=== PATIENT | male | born 1950 | race Caucasian/White ===

== ENCOUNTER 2016-04-03 10:53 | Outpatient (CLI) | payer MEDICARE, BC ==
[~2016-04-03] VITALS: Ht 195.6 cm; Wt 104.5 kg
--- NOTE | ~2016-04-03 | HEMODYNAMI ---
PATIENT:BRANDON JAMESON MEDICAL RECORD: [id number] : 46 LOCATION:[facility] ADMISSION DATE: 04/03/16 Generatedon:04/03/201613:27 Patient name: BRANDON JAMESON Patient #: [id number] SSN: : 1950 Date of study: 04/03/2016 Page: Of Hemodynamic Procedure Report Patient Data Patient Demographics Procedure consent was obtained First Name: BRANDON Gender: Male Last Name: GISELL : 1950 Middle Initial: A Age: 65 year(s) Patient #: [id number] Race: Additional ID: [id number] Contact details Address: [address] [place] [address] State: [place] City: [place] Zip code: [address] Past Medical History Performed procedures and imaging results Date Procedure Procedure Results Comments 03/23/2016 Stress testing Positive->Intermediate anterior with SPECT MPI risk Allergies: No known allergies Admission Admission Data Admission Date: 04/03/2016 Admission Time: 10:53 Insurance Payor: Private health insurance, Medicare Height (in.): 77 BSA: 2.39 (m2) Height (cm.): 195.58 BMI: 27.63 (kg/m2) Weight (lbs.): 233 Weight (kg.): 105.69 Lab Results Lab Result Date: 04/03/2016 Lab Result Time: 11:15 Biochemistry Name Units Result Min Max BUN mg/dl 18 --(---*)-- 7 18 Creatinine mg/dl 1.4 --(----)*- 0.6 1.3 CBC Name Units Result Min Max Hemoglobin g/dl 16 --(--*-)-- 13.5 17.5 Procedure Procedure Types Cath Procedure Diagnostic Procedure C [facility] w/Coronaries Miscellaneous Procedures Moderate Sedation up to 15 minutes Procedure Description Procedure Date Procedure Date: 04/03/2016 Procedure Start Time: 13:14 Procedure End Time: 13:24 Procedure Staff Name Function Gentry Blanca MD Performing Physician Leah Carrion RT Scrub Renaldo Becerril RN Nurse Michael Arechiga RT Monitor Procedure Data Cath Procedure Fluoroscopy Diagnostic fluoroscopy Total fluoroscopy Time: 1.3 time: 1.3 min min Diagnostic fluoroscopy Total fluoroscopy dose: 331 dose: 331 mGy mGy Contrast Material Contrast Material Type Amount (ml) Isovue 300 59 Entry Location Entry Primary Successful Side Size Upsize Upsize Entry Closure Succes sful Closure Location (Fr) 1 (Fr) 2 (Fr) Remarks Device Remarks Femoral Right 5 Fr Exoseal artery Estimated blood loss: 5 ml Diagnostic catheters Device Type Used For End Catheter Placement Cordis 5Fr JL 4.0 Procedure Catheter (MP) Cordis 5Fr 3DRC Catheter Procedure (MP) Cordis 5Fr Pigtail Procedure Catheter (MP) Procedure Complications No complications Procedure Medications Medication Administration Route Dosage Oxygen NC 2 l/min Lidocaine 2% added to field 20 Heparin Flush Bag added to field 2 bags (1000units/500ml NS) 0.9% NaCl I.V. 100 ml/hr Versed I.V. 2 mg Fentanyl I.V. 100 mcg Versed I.V. 2 mg Fentanyl I.V. 100 mcg Versed I.V. 0.5 mg Fentanyl I.V. 25 mcg Hemodynamics Rest BSA: 2.39 (m2) HGB: 16 (g/dl) O2 Consumption: Estimated: 288.77 (ml/min) O2 Cons umption indexed: Estimated:120.82 (ml/min/m) Heart Rate: 82 (bpm) Pressure Samples Time Site Value (mmHg) Purpose Heart Use Rate(bpm) 13:19 LV 132/9,16 Snapshot 76 Gradients Valve Time Site Site Mean SEP/DFP Peak To Heart Use 1 2 (mmHg) (sec/min) Peak Rate (mmHg) (bpm) Aortic 13:20 LV AO 76 Snapshots Pre Cath Intra NCS Post Cath Vital Signs Time Heart Resp SPO2 etCO2 [id number] NIBP (mmHg) Rhythm Pain Sedatio n Rate (ipm) (%) (mmHg) (mmHg) Status Level (bpm) 12:49:37 82 21 98 0 0 166/105(138) NSR 0 (11) 10(A) , No pain 12:53:58 82 17 99 0 0 152/94(136) NSR 0 (11) 10(A) , No pain 12:58:14 84 20 99 0 0 158/98(128) NSR 0 (11) 10(A) , No pain 13:02:34 77 18 97 0 0 138/83(115) NSR 0 (11) 10(A) , No pain 13:06:48 78 19 98 0 0 149/87(130) NSR 0 (11) 10(A) , No pain 13:11:02 74 16 94 0 0 127/77(103) NSR 0 (11) 10(A) , No pain 13:15:12 78 23 95 0 0 133/84(107) NSR 0 (11) 9(A) , No pain 13:19:28 76 16 96 0 0 126/74(106) NSR 0 (11) 9(A) , No pain 13:23:37 78 17 97 0 0 131/83(104) NSR 0 (11) 9(A) , No pain 13:25:55 75 15 95 0 0 123/74(100) NSR 0 (11) 10(A) , No pain Medications Time Medication Route Dose Verified Delivered Reason Notes Effe ctiveness by by 12:57:26 Oxygen NC 2 Gentry Buffie used for l/min [facility] Becerril body finisher 12:57:33 Lidocaine 2% added 20ml Gentry Gentry for local to vial [facility] anesthetic field MD COTTER 12:57:39 Heparin Flush added 2 Gentry Gentry used for Bag to bags [facility] procedure (1000units/500ml field MD COTTER NS) 12:57:48 0.9% NaCl I.V. 100 Gentry Buffie Per ml/hr [facility] Sridhar Becerril RN physician 13:12:33 Versed I.V. 2 mg Gentry Buffie for [facility] Sridhar Becerril RN sedation 13:12:38 Fentanyl I.V. 100 Gentry Buff[address] for mcg [facility] Sridhar Becerril RN sedation 13:16:48 Versed I.V. 2 mg Gentry Buffie for [facility] Sridhar Becerril RN sedation 13:16:51 Fentanyl I.V. 100 Gentry Buffie for mcg [facility] Sridhar Becerril RN sedation 13:20:18 Versed I.V. 0.5 Gentry Buffie for mg [facility] Sridhar Becerril RN sedation 13:20:22 Fentanyl I.V. 25 Gentry Buffie for mcg [facility] Sridhar Becerril RN sedation Procedure Log Time Note 12:33:10 Diagnostic Cath Status : Elective 12:33:39 Time tracking: Regular hours 12:33:44 Plan of Care:Hemodynamics will remain stable., Cardiac rhythm will remain stable., Comfort level will be maintained., Respiratory function will remain adequate., Patient/ family verbilizes understanding of procedure., Procedure tolerated without complication., Recovers from procedure without complications.. 12:34:24 Leah Counts RT(R) sent for patient. Start room use. 12:39:00 Patient allergic to No known allergies 12:39:08 Patient Height : 77 inches 12:39:27 Patient Weight : 233 lbs 12:39:27 Insurance Payor : Private health insurance, Medicare 12:42:43 Informed consent obtained and on chart 12:43:31 Patient received from Pre/Post Procedure Room to CCL 1 Alert and oriented. Tansferred to table in Supine position. 12:43:32 Warm blankets applied, and warren hugger turned on for patient comfort. 12:43:32 Correct patient and procedure confirmed by team. 12:43:33 ECG and BP/O2 sat monitors applied to patient. 12:48:25 Vital chart was started 12:48:26 Full Disclosure recording started 12:55:30 H&P Date Dictated: 03/10/2016 Within 30 days and on chart., H&P Addendum completed by physician on day of procedure. (MUST COMPLETE FOR ALL OUTPATIENTS). 12:55:32 Pre-procedure instructions explained to patient. 12:55:32 Pre-op teaching completed and patient verbalized understanding. 12:55:33 Family in waiting room. 12:55:35 Patient NPO since Midnight. 12:55:37 Is the patient allergic to Iodine/contrast media? No. 12:55:40 Is patient on blood thinner?No 12:55:41 Patient diabetic? No. 12:55:45 Previous problem with sedation/anesthesia? No ? 12:55:53 Snore? Yes 12:55:55 Sleep apnea? No 12:55:57 Deviated septum? No 12:55:58 Opens mouth fully? Yes 12:55:58 Sticks out tongue? Yes 12:56:00 Airway obstruction? No ? 12:56:02 Dentures? No ? 12:56:11 Pre procedure: right dorsailis pedis pulse 2+ Normal; easily identifiable; not easily obliterated 12:57:26 Oxygen 2 l/min NC was given by Renaldo Becerril RN; used for procedure; 12:57:33 Lidocaine 2% 20ml vial added to field was given by Gentry Blanca MD; for local anesthetic; 12:57:39 Heparin Flush Bag (1000units/500ml NS) 2 bags added to field was given by Gentry Blanca MD; used for procedure; 12:57:48 0.9% NaCl 100 ml/hr I.V. was given by Renaldo Becerril RN; Per physician; 12:59:57 Patient pain scale 0/10 ?. 13:00:08 Baseline sample Acquired. 13:00:13 Rhythm: sinus rhythm 13:00:24 IV patent on arrival in left wrist with 0.9% NaCl at [facility]. 13:00:52 Lab Result : BUN 18 mg/dl 13:00:52 Lab Result : Creatinine 1.4 mg/dl 13:00:52 Lab Result : Hemoglobin 16 g/dl 13:00:55 Lab results completed and on chart. 13:00:58 Right groin area was prepped with chlora-prep and draped in sterile fashion 13:00:59 Alarms reviewed by R. N. 13:00:59 Sharps counted by scrub and verified by R.N. 13:01:02 Use device set Femoral Dx 13:01:03 Tegaderm 4 x 4 opened to sterile field. 13:01:04 Acist Manifold opened to sterile field. 13:01:04 Acist Hand Control opened to sterile field. 13:01:05 Acist Syringe opened to sterile field. 13:01:05 Bag Decanter opened to sterile field. 13:01:06 Medline Cath Pack opened to sterile field. 13:01:06 Terumo 5Fr [place] Sheath opened to sterile field. 13:01:07 St [place] 260cm J .035 wire opened to sterile field. 13:01:08 Cordis Infinity 5Fr Multipack catheter opened to sterile field. 13:01:15 Physician paged 13:08:11 Zero performed for pressure channel P1 13:10:20 Physician arrived 13:10:20 --------ALL STOP TIME OUT------ 13:10:21 Final Timeout: patient, procedure, and site verified with staff and physician. All members of the team are in agreement. 13:10:23 Right groin site verified by team. 13:10:26 Physical assessment completed. ASA score P 2 - A patient with mild systemic disease as per Gentry Blanca MD. 13:10:31 Sedation plan: IV Moderate Sedation Versed, Fentanyl 13:12:33 Versed 2 mg I.V. was given by Renaldo Becerril RN; for sedation; 13:12:38 Fentanyl 100 mcg I.V. was given by Renaldo Becerril RN; for sedation; 13:14:01 Procedure started. 13:14:03 Local anesthetic to right femoral artery with Lidocaine 2% by Gentry Blanca MD.INITIAL ACCESS ONLY 13:14:40 A 5 Fr sheath was inserted into the Right Femoral artery 13:15:22 A Cordis 5Fr JL 4.0 Catheter (MP) was advanced over the wire and used for Procedure. 13:16:32 LCA angiography performed. 13:16:48 Versed 2 mg I.V. was given by Renaldo Becerril RN; for sedation; 13:16:51 Fentanyl 100 mcg I.V. was given by Renaldo Becerril RN; for sedation; 13:16:52 Catheter exchanged over wire. 13:17:12 A Cordis 5Fr 3DRC Catheter (MP) was advanced over the wire and used for Procedure. 13:17:58 RCA angiography performed. 13:18:06 ACCDominant side:Left 13:18:39 Catheter exchanged over wire. 13:18:53 A Cordis 5Fr Pigtail Catheter (MP) was advanced over the wire and used for Procedure. 13:19:37 LV hemodynamics recorded. 13:19:38 LV gram done using ARROYO 13:19:42 Injector settings: Ml/sec: 10, Volume: 20, 13:19:48 EF : 55 % 13:19:59 Catheter removed. 13:20:08 Cordis 5Fr Exoseal opened to sterile field. 13:20:18 Versed 0.5 mg I.V. was given by Renaldo Becerril RN; for sedation; 13:20:22 Fentanyl 25 mcg I.V. was given by Renaldo Becerril RN; for sedation; 13:20:31 Sheath removed intact; hemostasis achieved with Exoseal to the Right Femoral artery. 13:20:36 Procedure ended.(Physican Out) 13:20:58 Fluoroscopy time 01.30 minutes. 13:21:02 Fluoroscopy dose: 331 mGy 13:21:02 Flurop Dose total: 331 13:21:07 Contrast amount:Isovue 300 59ml. 13:21:08 Sharps counted by scrub and verified by R.N. 13:21:10 Insertion/operative site no bleeding no hematoma. 13:21:14 Post-op/insertion site Right Femoral artery dressed using a 4 x 4 and Tegaderm. 13:21:19 Post right femoral artery:stable, soft, clean and dry 13:21:26 Post Procedure Pulses reassessed and unchanged 13:21:29 Post-procedure physical assessment completed. ASA score P 2 - A patient with mild systemic disease as per Gentry Blanca MD. 13:21:32 Post procedure rhythm: unchanged. 13:21:35 Estimated blood loss: 5 ml 13:21:37 Post procedure instruction explained to patient.Patient verbalizes understanding. 13:21:37 Patient needs reinforcement of post procedure teaching. 13:22:25 Procedure type changed to Cath procedure, Diagnostic procedure, LHC, LHC w/Coronaries, Miscellaneous Procedures, Moderate Sedation up to 15 minutes 13:22:28 Procedure and supply charges have been captured, reviewed, submitted and are correct. 13:22:30 Procedure Complication : No complications 13:23:41 Vital chart was stopped 13:24:07 See physician's report for complete and final results. 13:24:09 Report given to Pre/Post Procedure Room. 13:24:12 Patient transfered to Pre/Post Procedure Room with Stretcher. 13:24:14 Procedure ended. 13:24:14 Full Disclosure recording stopped 13:24:19 End room use (Document Last) Device Usage Item Name Manufacture Quantity Catalog Hospital Part Current Minimal Lot # / Number Charge Number Stock Stock Serial# Code Tegaderm 3M 1 [id number] [id number] [id number] 5 4 x 4 Acist Acist 1 75943 935416 313725 963467 5 Manifold Medical Systems Inc Acist Acist 1 75216 407512 086960 831810 5 Hand Medical Control Systems Inc Acist Acist 1 49951 868683 395459 878998 20 Syringe Medical Systems Inc Bag Microtek 1 2001S 716371 43753 855393 5 Decanter Medical Inc. Medline Cardinal 1 [id number] 038846 26986 213278 5 Cath Pack Health Terumo Terumo 1 [id number] 023868 039416 811829 [address] [place] [address] [address] Tawanda 1 [id number] 916911 397817 603696 30 260cm J .035 wire Cordis Cardinal 1 [id number] 184591 92136 502308 30 Infinity Health 5Fr Multipack catheter Cordis Cardinal 1 [id number] 5 5Fr JL Health 4.0 Catheter (MP) Cordis Cardinal 1 455424 5 5Fr 3DRC Health Catheter (MP) Cordis Cardinal 1 197432 5 5Fr Health Pigtail Catheter (MP) Cordis Cardinal 1 EX500 113723 404560 605476 10 5Fr Health Exoseal Signature Audit [place] Stage Time Signature Unsigned Intra-Procedure 04/03/2016 Michael Arechiga 1:27:03 PM RT(R) Signatures Monitor : Michael Arechiga RT Signature : Date : Time : [place] [id number] ELISHA NINO COREA, JACQUI [id number]
[2016-04-03] MEDS ORDERED: DIOVAN HCT 160/1 TA1 PO (11:13)
[2016-04-03] MEDS ORDERED: ZIAC 10-6.25 MG1 TAB PO (11:14)
[2016-04-03] MEDS ORDERED: BAYER CHEWABLE81 MG PO (11:15)
[2016-04-03 11:17] VITALS: BP 158/103; Ht 195.6 cm; Wt 104.5 kg
[2016-04-03 11:35] LABS: BASOPHILS 0.2 % (0.0-2.0); EOSINOPHILS 2.2 % (0-7); HEMATOCRIT 46.2 % (42.0-54.0); IMMATURE GRANULOCYTES 0.2 % (0-5); LYMPHOCYTES 24.9 % (15-50); MCH 31.5 pg (26.0-34.0); MCHC 34.6 g/dL (31.0-37.0); MCV 90.9 fL (80.0-100.0); MEAN PLATELET VOLUME 10.7 fL (7.4-10.4); NEUTROPHILS 64.5 % (40-80); PLATELET COUNT 229 10x3/uL (130-400); RBC 5.08 10x6/uL (4.20-6.10); RDW 12.9 % (11.5-14.5); WBC 9.9 10x3/uL (4.8-10.8)
[2016-04-03 12:00] LABS: ANION GAP 16.2 mmol/L (8-16); CALCIUM 9.9 mg/dL (8.5-10.1); CARBON DIOXIDE 27.3 mmol/L (21.0-32.0); CREATININE - SERUM 1.4 mg/dL (0.6-1.3); POTASSIUM - SERUM 3.5 mmol/L (3.5-5.1)
--- NOTE | 2016-04-03 13:48 | NUR ---
VSS WITH 5 FR EXOSEAL R/GROIN CDI NO BLEEDING NO HEMATOMA NOTED. INSTRUCTED PATIENT TO KEEP HEAD FLAT ON PILLOW WITH RLE STRAIGHT
--- NOTE | 2016-04-03 14:03 | NUR ---
RESTING QUIETLY WITH CHEST PAIN DENIED VSS 5 FR EXOSEAL R/GROIN CDI NO BLEEDING NO HEMATOMA NOTED. WILL MONITOR
--- NOTE | 2016-04-03 15:12 | NUR ---
1500 PT DENIES ANY C/O. GROIN STABLE WITH NO BLEEDING OR HEMATOMA. SANDWICH TRAY SERVED. AT BEDSIDE.
--- NOTE | 2016-04-03 15:39 | NUR ---
1535 PT HAS TOLERATED SANDWICH WITH NO C/O NAUSEA. IV DC'D WITH CATH INTACT. DC INSTRUCTIONS REVIEWED WT PT AND WHO VERBALIZE UNDERSTANDING. WRITTEN COPIES PROVIDED.
--- NOTE | 2016-04-03 15:40 | NUR ---
1550 PT HAS VOIDED QS. PT ESCORTED TO PRIVATE AUTO VIA WC BY NURSE WITH DRIVING HIM HOME.
--- NOTE | 2016-04-04 09:30 | OP ---
PATIENT NAME: BRANDON JAMESON MEDICAL RECORD: [id number] :46 LOCATION:D.CAT ADMISSION DATE: SURGEON: RAYNA DURÁN MD DATE OF OPERATION: 04/03/2016 PROCEDURE: Left heart catheterization, selective coronary angiography, right femoral approach. CATHETERS: A 5-Indian sheath, 5/4 left and right Leo, 5/4 pig. The procedure was well tolerated. The patient returned to the garcia, sheath was removed. ExoSeal device placed. FINDINGS: Left ventriculography in 30-degree ARROYO view: Normal wall motion and normal systolic function. CORONARY ANATOMY: Left main: Left main is free of disease. LAD: Free of disease in the diagonal system. CIRCUMFLEX: ____ circumflex system, dominant free of disease. RIGHT CORONARY ARTERY: Rudimentary, free of disease. IMPRESSION: Normal systolic function. Normal coronary anatomy. TRANSINT:[id number] Voice Confirmation ID: [id number] DOCUMENT ID: [id number] RAYNA DURÁN MD at 0930 CC: [id number] DICTATION DATE: 04/03/16 1325 HAMMERER HELPER: 04/03/16 1950 [facility] CLI 04/03/[address] [facility] [address] [place] [place] [address]
== END 2016-04-03 15:50 | disposition home or self-care (01) ==
LOC: D.CATH 10:53
PROVIDERS: Internal Medicine Interventional Cardiology
DX: I20.9 Angina pectoris, unspecified (principal); I10 Essential (primary) hypertension; R94.31 Abnormal electrocardiogram [ECG] [EKG]

== ENCOUNTER 2017-09-14 14:20 | Observation (INO) | payer MEDICARE, BC ==
[~2017-09-14] VITALS: Ht 195.6 cm; Wt 102.3 kg
--- NOTE | ~2017-09-14 | EC ---
PATIENT:BRANDON JAMESON DATE OF SERVICE: 09/14/17 SEX: M MEDICAL RECORD: [id number] DATE OF : [birth year] LOCATION:D.M2 D.211 AGE OF PATIENT: 67 ADMISSION DATE: 09/14/17 REFERRING PHYSICIAN: INTERPRETING PHYSICIAN: ALEXANDER VALENTINE MD ECHOCARDIOGRAM REPORT ECHO CHARGES 4 ECHO COMPLETE Date: 09/15 CLINICAL DIAGNOSIS: A-FIB ECHOCARDIOGRAPHIC MEASUREMENTS (adult normal given) AC root (d.<3.7cm) 3.5 cm LV Septum d (<1.2 cm> 1.4 cm Valve Excursion 2.0 cm LV Septum (systole) 2.2 cm Left Atria (s.<4.0cm> 3.7 cm LVPW d(<1.2cm) 1.4 cm RV (d.<2.3cm) 2.5 cm LVPW (sytole) 2.1 cm LV diastole(<5.6CM) 5.4 cm MV E-F(>70mm/sec) cm LV systole 3.3 cm LVOT Diameter 2.1 cm MV exc.(>10mm) cm Est.ejection fraction (50-75%) % DOPPLER: LVIT cm/sec A 44.0 cm/sec E 66.0 cm/sec LA cm/sec RVSP 41.0 mmHg LVOT 82.0 cm/sec AOP1/2T m/s Asc. Ao 109 cm/sec RVOT 68.0 cm/sec RA cm/sec PA 65.0 cm/sec AV Gradient Peak 4.8 mmHg AV Mean 2.8 mmHg AV Area 2.4 cm MV Gradient Peak 3.3 mmHg MV Mean 0.95 mmHg MV Area cm COMMENTS: Mink Slicer: Constantino PONCEOE C Wpf Developer: 4 Dr. Valentine TAPE# PACS Pericardial Effusion N DATE OF SERVICE: PROCEDURE: Transthoracic echocardiogram. FINDINGS: 1. The patient has evidence of mild left ventricular hypertrophy. Inflow characteristics are not well established because of atrial fibrillation. The ejection fraction is 55%. There are no regional wall motion abnormalities. 2. The left atrium is normal size, shape, structure, and function. 3. The aortic valve is normal. ECHOCARDIOGRAM REPORT [id number] BRANDON JAMESON 4. The mitral valve has mild mitral regurgitation. 5. Tricuspid valve has mild tricuspid regurgitation. 6. The pericardium is normal. 7. The right ventricle is normal. 8. The right atrium is normal to mildly dilated. 9. Pulmonic valve has trace pulmonic insufficiency. There is no pericardial effusion. CONCLUSIONS: The patient has evidence of hypertensive heart disease and atrial dysrhythmia. TRANSINT:[id number] Voice Confirmation ID: [id number] DOCUMENT ID: [id number] ALEXANDER VALENTINE MD at 1211 CC: [id number] DICTATION DATE: 09/16/17 1025 ASSISTANT MAINTENANCE MANAGER: 09/16/17 1124 ADM IN [facility] [address] [place] [id number]
--- NOTE | ~2017-09-14 | MORECARE ---
CASE MANAGEMENT DISCHARGE SUMMARY PATIENT: BRANDON JAMESON UNIT: [id number] ADM DATE: 09/14/17 AGE: 67 : 48 SEX: M ROOM/BED: D.2118 AUTHOR: CASE, DIRECTOR ENTERPRISE DATA ARCHITECTURE PHYSICIAN: REFERRING PHYSICIAN: JERONIMO MCNULTY MD DATE OF SERVICE: 09/14/17 Discharge Plan Patient Name: BRANDON JAMESON [facility] [facility] 1950 Planned Disposition: Home Anticipated Discharge Date: 09/16/17 Discharge Date: 09/16/2017 Expected LOS: 2 Initial Reviewer: [email or web address] Initial Review Date: 09/16/2017 Generated: 09/20/17 10:41 am Patient Name: BRANDON JAMESON Page [phone] All edits/amendments must be made on the electronic document DICTATION DATE: 09/20/17939 ARMORED CAR GUARD: 09/20/17939 RPT#: [id number] DC DATE:09/16/17 STATUS: DIS IN [facility] [address] [place] [address] END OF REPORT
[~2017-09-14 14:20] MED LIST: BAYER CHEWABLE81 MG PO; DIOVAN HCT 160/1 TA1 PO; ZIAC 10-6.25 MG1 TAB PO
[2017-09-14] MEDS ORDERED: COZAAR100 MG PO (14:34)
[2017-09-14] MEDS ORDERED: ZYLOPRIM100 MG PO (14:35)
[2017-09-14 15:21] LABS: BASOPHILS 0.1 % (0-2); EOSINOPHILS 1.9 % (0-7); HEMOGLOBIN 12.8 g/dL (13.5-17.5); IMMATURE GRANULOCYTES 0.1 % (0-5); MCH 30.5 pg (26.0-34.0); MCHC 33.7 g/dL (31.0-37.0); MCV 90.7 fL (80.0-100.0); MEAN PLATELET VOLUME 10.1 fL (7.4-10.4); MONOCYTES 9.9 % (2-11); RBC 4.19 10x6/uL (4.20-6.10); RDW 15.3 % (11.5-14.5); WBC 7.6 10x3/uL (4.8-10.8)
[2017-09-14 15:30] LABS: ALKALINE PHOSPHATASE 148 U/L (46-116); ALT (SGPT) 28 U/L (10-68); BILIRUBIN - TOTAL 1.23 mg/dL (0.2-1.3); CALC OSMOLALITY 281 mosm/kg (275-300); CALCIUM 9.2 mg/dL (8.5-10.1); CHLORIDE - SERUM 103 mmol/L (98-107); CREATININE - SERUM 1.1 mg/dL (0.6-1.3); GLUCOSE 158 mg/dL (74-106); POTASSIUM - SERUM 4.5 mmol/L (3.5-5.1); PROTEIN - SERUM 8.1 g/dL (6.4-8.2); SODIUM 139 mmol/L (136-145); UREA NITROGEN 14 mg/dL (7-18); eGFR NON AFRICAN AMERICAN 70 mL/min (90-120)
[2017-09-14 15:31] LABS: PLATELET COUNT 182 10x3/uL (130-400)
[2017-09-14 15:42] LABS: CKMB 2.2 U/L (0.0-3.6); PRO BNP 2625 pg/mL (0-125)
[2017-09-14 16:45] VITALS: BP 141/91
[2017-09-14 18:40] VITALS: BP 137/88
[2017-09-14 19:34] VITALS: BP 128/89
[2017-09-14 21:17] VITALS: BP 140/85
[2017-09-14 21:31] VITALS: BP 140/85; Ht 195.6 cm; Wt 102.3 kg
[2017-09-14] MEDS ORDERED: CARTIA XT120 MG PO (21:47)
[2017-09-14] MEDS ORDERED: ZYLOPRIM300 MG PO (21:48)
[2017-09-14] MEDS ORDERED: PRESERVISION AR1 CAP PO (21:50)
[2017-09-14] MEDS ORDERED: VITAMIN D5000 UNIT (21:51)
[2017-09-14] MEDS ORDERED: SAW PALMETTO450 MG PO (21:52)
[2017-09-14] MEDS ORDERED: VIT K2 PO (21:53)
[2017-09-14] MEDS ORDERED: MSM PO (21:53)
[2017-09-15 01:26] VITALS: BP 116/77
[2017-09-15 05:33] LABS: BASOPHILS 0.3 % (0-2); EOSINOPHILS 3.3 % (0-7); HEMATOCRIT 38.2 % (42.0-54.0); HEMOGLOBIN 12.7 g/dL (13.5-17.5); IMMATURE GRANULOCYTES 0.1 % (0-5); LYMPHOCYTES 21.2 % (15-50); MCH 30.2 pg (26.0-34.0); MCHC 33.2 g/dL (31.0-37.0); MEAN PLATELET VOLUME 10.4 fL (7.4-10.4); MONOCYTES 11.8 % (2-11); NEUTROPHILS 63.3 % (40-80); PLATELET COUNT 189 10x3/uL (130-400); RDW 15.4 % (11.5-14.5); WBC 7.6 10x3/uL (4.8-10.8)
[2017-09-15 05:39] VITALS: BP 136/86
[2017-09-15 06:03] LABS: ALBUMIN 3.6 g/dL (3.4-5.0); ALKALINE PHOSPHATASE 135 U/L (46-116); ALT (SGPT) 24 U/L (10-68); BILIRUBIN - TOTAL 1.06 mg/dL (0.2-1.3); CALC OSMOLALITY 277 mosm/kg (275-300); CALCIUM 8.8 mg/dL (8.5-10.1); CHLORIDE - SERUM 104 mmol/L (98-107); GLUCOSE 133 mg/dL (74-106); POTASSIUM - SERUM 3.9 mmol/L (3.5-5.1); PROTEIN - SERUM 7.3 g/dL (6.4-8.2); SODIUM 138 mmol/L (136-145); UREA NITROGEN 12 mg/dL (7-18); eGFR NON AFRICAN AMERICAN 79 mL/min (90-120)
[2017-09-15 08:57] VITALS: BP 124/66
[2017-09-15 11:51] VITALS: BP 122/89
[2017-09-15 15:51] VITALS: BP 112/62
[2017-09-15 20:00] VITALS: BP 117/75
[2017-09-16 04:00] VITALS: BP 116/87
[2017-09-16 05:03] LABS: BASOPHILS 0.1 % (0-2); HEMOGLOBIN 11.9 g/dL (13.5-17.5); IMMATURE GRANULOCYTES 0.1 % (0-5); LYMPHOCYTES 22.8 % (15-50); MCHC 33.1 g/dL (31.0-37.0); MCV 90.7 fL (80.0-100.0); MEAN PLATELET VOLUME 10.5 fL (7.4-10.4); PLATELET COUNT 198 10x3/uL (130-400); RBC 3.97 10x6/uL (4.20-6.10); RDW 15.2 % (11.5-14.5); WBC 7.7 10x3/uL (4.8-10.8)
[2017-09-16 05:19] LABS: ALBUMIN 3.5 g/dL (3.4-5.0); ANION GAP 10.3 mmol/L (8-16); CALCIUM 8.7 mg/dL (8.5-10.1); CARBON DIOXIDE 28.3 mmol/L (21.0-32.0); CREATININE - SERUM 1.1 mg/dL (0.6-1.3); POTASSIUM - SERUM 3.6 mmol/L (3.5-5.1)
[2017-09-16 08:05] VITALS: BP 134/93
[2017-09-16] MEDS ORDERED: ELIQUIS5 MG PO (10:41)
[2017-09-16] MEDS ORDERED: COREG 3.1253.125 MG PO (10:42)
[2017-09-16 11:18] VITALS: BP 126/82
== END 2017-09-16 14:05 | disposition home or self-care (01) ==
LOC: D.ER 14:20 → D.EDHOLD 19:14 → OBSVTIME 19:14 → D.M2 20:12
PROVIDERS: Family Medicine
DX: I11.0 Hypertensive heart disease with heart failure (principal); I50.9 Heart failure, unspecified; I48.91 Unspecified atrial fibrillation

== ENCOUNTER → 2017-10-09 06:53 | Outpatient (CLI) | payer MEDICARE, BC ==
[~2017-10-09] VITALS: Ht 195.6 cm; Wt 100.0 kg
--- NOTE | ~2017-10-09 | HEMODYNAMI ---
PATIENT:BRANDON JAMESON MEDICAL RECORD: [id number] : 46 LOCATION:[facility] ADMISSION DATE: 10/09/17 Generatedon:10/09/20178:37 Patient name: BRANDON JAMESON Patient #: [id number] SSN: : 1950 Date of study: 10/09/2017 Page: Of Hemodynamic Procedure Report Patient Data Patient Demographics Procedure consent was obtained First Name: BRANDON Gender: Male Last Name: GISELL : 1950 Middle Initial: A Age: 67 year(s) Patient #: [id number] Race: Additional ID: [id number] Contact details Address: [address] [place] [address] State: [place] City: [place] Zip code: [address] Past Medical History Allergies: No known allergies Admission Admission Data Admission Date: 10/09/2017 Admission Time: 6:53 Procedure Procedure Types Cath Procedure Diagnostic Procedure Cardioversion External Procedure Description Procedure Date Procedure Date: 10/09/2017 Procedure Start Time: 8:25 Procedure End Time: 8:29 Procedure Staff Name Function Tunde Gamble MD Performing Physician Taylor Cabral RT Monitor Scooby Lopez RN Nurse Taylor Cabral RT Scrub Juli Limon RT Monitor Procedure Data Cath Procedure Fluoroscopy Diagnostic fluoroscopy Total fluoroscopy Time: 0 time: 0 min min Diagnostic fluoroscopy Total fluoroscopy dose: 0 dose: 0 mGy mGy Contrast Material Contrast Material Type Amount (ml) Isovue 300 0 Estimated blood loss: 0 ml Procedure Complications No complications Procedure Medications Medication Administration Route Dosage Lopressor I.V. 5 mg Hemodynamics Rest Heart Rate: 93 (bpm) Snapshots Pre Cath Intra NCS Post Cath Vital Signs Time Heart Resp SPO2 etCO2 NIBP (mmHg) Rhythm Pain Sedation Rate (ipm) (%) (mmHg) Status Level (bpm) 8:22:53 95 12 96 0 160/121(137) NSR 0 (11) 10(A) , No pain 8:27:46 101 26 99 9.7 148/105(115) NSR 0 (11) 10(A) , No pain 8:34:54 71 19 94 9 127/76(114) NSR 0 (11) 10(A) , No pain Medications Time Medication Route Dose Verified Delivered Reason Notes Effectivene ss by by 8:35:13 Lopressor I.V. 5 mg Tunde Almodovar Per Mavis Lopez RN physician MD Procedure Log Time Note 8:13:11 Taylor Cabral RT(R) sent for patient. Start room use. 8:13:12 Time tracking: Regular hours (M-F 7:00 - 5:00) 8:13:16 Plan of Care:Hemodynamics will remain stable., Cardiac rhythm will remain stable., Comfort level will be maintained., Respiratory function will remain adequate., Patient/ family verbilizes understanding of procedure., Procedure tolerated without complication., Recovers from procedure without complications.. 8:15:49 Patient received from Pre/Post Procedure Room to CCL 3 Alert and oriented. Tansferred to table in Supine position. 8:15:50 Warm blankets applied, and warren hugger turned on for patient comfort. 8:15:51 Correct patient and procedure confirmed by team. 8:15:52 Signed procedure consent form obtained from patient. 8:15:54 ECG and BP/O2 sat monitors applied to patient. 8:21:36 Vital chart was started 8:21:37 Baseline sample Acquired. 8:21:43 Rhythm: atrial fibrillation 8:21:45 Full Disclosure recording started 8:21:49 H&P Date Dictated: 10/09/2017 Within 30 days and on chart., H&P Addendum completed by physician on day of procedure. (MUST COMPLETE FOR ALL OUTPATIENTS). 8:21:50 Pre-procedure instructions explained to patient. 8:21:51 Pre-op teaching completed and patient verbalized understanding. 8:21:53 Family in waiting room. 8:21:54 Patient NPO since Midnight. 8:21:56 Is the patient allergic to Iodine/contrast media? No. 8:21:57 Was the patient premedicated? No 8:21:58 Is patient on blood thinner?Yes 8:22:02 ACC The patient was administered the following blood thiners within the last 24 hours: Eliquhaim 8:22:04 Patient diabetic? No. 8:22:06 Previous problem with sedation/anesthesia? No ? 8:22:10 Snore? Yes 8:22:11 Sleep apnea? No 8:22:12 Deviated septum? No 8:22:13 Opens mouth fully? Yes 8:22:14 Sticks out tongue? Yes 8:22:16 Airway obstruction? No ? 8:22:19 Dentures? No ? 8:22:25 Patient pain scale 0/10 ?. 8:22:40 IV patent on arrival in left forearm with 0.9% NaCl at [facility]. 8::42 Lab results completed and on chart. 8::44 Alarms reviewed by R. N. 8::44 Sharps counted by scrub and verified by R.N. 8::45 Physician arrived 8::46 --------ALL STOP TIME OUT------ 8::46 Final Timeout: patient, procedure, and site verified with staff and physician. All members of the team are in agreement. 8:22:53 Physical assessment completed. ASA score P 2 - A patient with mild systemic disease as per Tunde Gamble MD. 8:22:59 Sedation plan: TIVA Medication:Propofol 8:23:14 Quick combo pads placed on patients chest and back. 8:23:17 Defibrillator synced and charged to 200 Joules. 8:25:08 Procedure started. 8:26:30 Shock delivered. 8:26:50 Procedure ended.(Physican Out) 8:27:46 Patient cardioverted to sinus rhythm . 8:28:58 Fluoroscopy time 00.00 minutes. 8:29:00 Fluoroscopy dose: 0 mGy 8:29:00 Flurop Dose total: 0 8:29:03 Contrast amount:Isovue 300 0ml. 8:29:04 Sharps counted by scrub and verified by R.N. 8:29:06 Insertion/operative site no bleeding no hematoma. 8:29:09 Post procedure rhythm: sinus rhythm 8:29:11 Estimated blood loss: 0 ml 8:29:13 Post procedure instruction explained to patient.Patient verbalizes understanding. 8:29:14 Patient needs reinforcement of post procedure teaching. 8:29:19 Procedure and supply charges have been captured, reviewed, submitted and are correct. 8:29:23 Procedure Complication : No complications 8::25 Vital chart was stopped 8:29:26 See physician's report for complete and final results. 8:29:28 Report given to Pre/Post Procedure Room. 8:29:30 Patient transfered to Pre/Post Procedure Room with Stretcher. 8:29:34 Procedure ended. 8:29:34 Full Disclosure recording stopped 8:29:37 End room use (Document Last) 8:35:13 Lopressor 5 mg I.V. was administered by Scooby Lopez RN; Per physician; Signature Audit [place] Stage Time Signature Unsigned Intra-Procedure 10/09/2017 Taylor Cabral 8:37:01 AM RT(R) Signatures Monitor : Taylor Cabral Signature : RT Date : Time : Monitor : Juli Limon RT Signature : Date : Time : [place] [id number] [facility] [place] [address]
--- NOTE | ~2017-10-09 | OP ---
PATIENT NAME: BRANDON JAMESON MEDICAL RECORD: [id number] :46 LOCATION:[facility] ADMISSION DATE: SURGEON: ALEXANDER VALENTINE MD DATE OF OPERATION: 10/09/2017 PROCEDURE: Elective cardioversion. PROCEDURE IN DETAIL: The patient was brought into the cardiac catheterization lab in stable condition. The chest was sterilely prepped and draped. We had an anterior and posterior pads placed. We then sedated under anesthesia with propofol and the patient after anesthesia had full effect at 200 joules of biphasic energy delivered in an anterior and posterior fashion. The patient was shown to revert into a sinus rhythm. The procedure was terminated successfully. IMPRESSION: Atrial fibrillation with successful DC cardioversion. RECOMMENDATIONS: Continue aggressive secondary risk factor modification at coagulation with a direct thrombin inhibitor. Follow up in 1 to 2 weeks in clinic with an EKG. 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
[~2017-10-09 06:53] MED LIST changes: +CARTIA XT120 MG PO; +COREG 3.1253.125 MG PO; +COZAAR100 MG PO; +ELIQUIS5 MG PO; +MSM PO; +PRESERVISION AR1 CAP PO; +SAW PALMETTO450 MG PO; +VIT K2 PO; +VITAMIN D5000 UNIT; +ZYLOPRIM100 MG PO; +ZYLOPRIM300 MG PO
[2017-10-09 07:22] VITALS: BP 132/105; Ht 195.6 cm; Wt 100.0 kg
[2017-10-09 07:41] LABS: BASOPHILS 0.1 % (0-2); EOSINOPHILS 1.7 % (0-7); HEMATOCRIT 37.9 % (42.0-54.0); HEMOGLOBIN 12.9 g/dL (13.5-17.5); IMMATURE GRANULOCYTES 0.1 % (0-5); LYMPHOCYTES 12.7 % (15-50); MCH 30.6 pg (26.0-34.0); MEAN PLATELET VOLUME 10.5 fL (7.4-10.4); NEUTROPHILS 76.4 % (40-80); PLATELET COUNT 186 10x3/uL (130-400); RBC 4.21 10x6/uL (4.20-6.10); RDW 14.5 % (11.5-14.5); WBC 7.2 10x3/uL (4.8-10.8)
[2017-10-09 07:53] LABS: ANION GAP 12.5 mmol/L (8-16); CALCIUM 8.7 mg/dL (8.5-10.1); CARBON DIOXIDE 24.3 mmol/L (21.0-32.0); CREATININE - SERUM 1.1 mg/dL (0.6-1.3); POTASSIUM - SERUM 3.8 mmol/L (3.5-5.1)
[2017-10-09 09:01] LABS: INR 1.48 (0.85-1.17); PROTIME 17.1 SECONDS (11.6-15.0)
== END | disposition home or self-care (01) ==
LOC: D.CATH 06:53
PROVIDERS: Internal Medicine Cardiovascular Disease
DX: I48.91 Unspecified atrial fibrillation (principal)